=== PATIENT | female | born 1955 | race Caucasian/White ===

== ENCOUNTER 2018-03-06 05:49 | Day surgery (SDC) | payer OTHER ==
[2018-03-06] MEDS ORDERED: PERCOCET 5-3251 EACH PO (08:26)
[2018-03-06] MEDS ORDERED: NUPERCAINAL56.7 GM TOP (08:27)
== END 2018-03-06 16:15 | disposition home or self-care (01) ==
LOC: CIR.AMB 05:49
DX: K62.2 Anal prolapse (principal)

== ENCOUNTER 2023-04-05 11:45 | Outpatient (CLI) | payer OTHER ==
[~2023-04-05 11:45] MED LIST: NUPERCAINAL56.7 GM TOP; PERCOCET 5-3251 EACH PO
== END 2023-04-05 12:02 | disposition home or self-care (01) ==
LOC: RAD 11:45
PROVIDERS: ATTEND Orthopaedic Surgery
DX: S83.201A Bucket-handle tear of unspecified meniscus, current injury, left knee, initial encounter (principal); M25.561 Pain in right knee; M25.562 Pain in left knee
CPT/HCPCS: 73721